=== PATIENT | male | born 1970 | race Caucasian/White ===

== ENCOUNTER 2016-11-29 15:49 | Inpatient (IN) | payer OTHER ==
[2016-11-29 17:17] VITALS: BMI 29.4
--- NOTE | 2016-11-29 19:04 | HP ---
[id number] 4d 4-Moderate,w/Arms Extend Anxiety: 4-Mod. Anxious/Guarded Agitation: 4-Moderately Restless Paroxysmal Sweats: 1-Minimal Palms Moist Orientation: 1-Uncertain about Date Tacttile Disturbances: 0-None Auditory Disturbances: 0-None Visual Disturbances: 0-None Headache: 0-None Present CIWA-Ar Total Score: 15 Admission ROS BHS - HPI Chief Complaint: withdrawal sx Allergies/Adverse Reactions: Allergies Allergy/AdvReac Type Severity Reaction Status Date / Time No Known Allergies Allergy Verified 11/29/16 17:53 History of Present Illness: 46 years old male with long history of alcohol cocaine marijuana nicotine dependence, - Ebola screening Have you traveled outside of the country in the last 21 days: No Have you had contact with anyone from an Ebola affected area: No Have you been sick,other than usual withdrawal symptoms: No Do you have a fever: No - Review of Systems Constitutional: Chills, Changes in sleep, Weight Stable EENT: reports: No Symptoms Reported Respiratory: reports: No Symptoms reported Cardiac: reports: No Symptoms Reported GI: reports: Diarrhea, Nausea, Poor Fluid Intake, Vomiting, Abdominal cramping : reports: No Symptoms Reported Musculoskeletal: reports: No Symptoms Reported Integumentary: reports: No Symptoms Reported Neuro: reports: Tremors Endocrine: reports: No Symptoms Reported Hematology: reports: No Symptoms Reported Psychiatric: reports: Judgement Intact, Anxious, Depressed Other Systems: Reviewed and Negative Patient History - Patient Medical History Hx Anemia: No Hx Asthma: No Hx Chronic Obstructive Pulmonary Disease (COPD): No Hx Cancer: No Hx Cardiac Disorders: No Hx Congestive Heart Failure: No Hx Hypertension: Yes Hx Hypercholesterolemia: Yes Hx Pacemaker: No HX Cerebrovascular Accident: No Hx Seizures: No Hx Dementia: No Hx Diabetes: Yes Hx Gastrointestinal Disorders: No Hx Liver Disease: No Hx Genitourinary Disorders: No Hx Sexually Transmitted Disorders: No Hx Renal Disease (ESRD): No Hx Thyroid Disease: No Hx Human Immunodeficiency Virus (HIV): No Hx Hepatitis C: No Hx Depression: No Hx Suicide Attempt: No (2016 thoughts) Hx Bipolar Disorder: Yes Hx Schizophrenia: No - Patient Surgical History Past Surgical History: No Hx Neurologic Surgery: No Hx Cataract Extraction: No Hx Cardiac Surgery: No Hx Lung Surgery: No Hx Breast Surgery: No Hx Breast Biopsy: No Hx Abdominal Surgery: Yes (umbilical 2003) Hx Appendectomy: No Hx Cholecystectomy: No Hx Genitourinary Surgery: No Hx Orthopedic Surgery: No Other Surgical History: 2000 devi spetal Anesthesia Reaction: No - PPD History Previous Implant?: Yes Documented Results: Positive w/o proof Implanted On Prior R Admission?: No PPD to be Administered?: No - Smoking Cessation Smoking history: Current every day smoker Have you smoked in the past 12 months: Yes Aproximately how many cigarettes per day: 20 Cigars Per Day: 0 Hx Chewing Tobacco Use: No Initiated information on smoking cessation: Yes 'Breaking Loose' booklet given: 11/29/16 - Substance & Tx. History Hx Alcohol Use: Yes Hx Substance Use: Yes Substance Use Type: Alcohol, Cocaine, Marijuana, Opiates Hx Substance Use Treatment: Yes - Substances Abused Alcohol Route: Oral Frequency: Daily Amount used: LIQUOR- 2 PINTS, BEER- 2 SIX PACKS Age of first use: 15 Date of Last Use: 11/29/16 Marijuana/Hashish Route: Smoking Frequency: Daily Amount used: $20 Age of first use: 15 Date of Last Use: 11/29/16 Cocaine Route: Inhalation Frequency: Daily Amount used: 2 BAGS Age of first use: 15 Date of Last Use: 11/26/16 Family Disease History - Family Disease History Family Disease History: Diabetes: Father, Heart Disease: Mother Admission Physical Exam S - Vital Signs Vital Signs: Vital Signs - 24 hr 11/29/16 17:15 Temperature 99.1 F Pulse Rate 104 H Respiratory 20 Rate Blood Pressure 135/72 - Physical General Appearance: Yes: Nourished, Appropriately Dressed, Mild Distress, Tremorous, Irritable, Sweating, Anxious HEENTM: Yes: Hearing grossly Normal, Normal ENT Inspection, Normocephalic, Normal Voice Respiratory: Yes: Chest Non-Tender, No Respiratory Distress, No Accessory Muscle Use, Wheezing, Expiration Neck: Yes: Supple, Trachea in good position Breast: Yes: Breasts Symetrical Cardiology: Yes: Regular Rhythm, S1, S2, Tachycardia Abdominal: Yes: Non Tender, Soft Genitourinary: Yes: Within Normal Limits Back: Yes: Normal Inspection Musculoskeletal: Yes: full range of Motion, Gait Steady Extremities: Yes: Normal Inspection, Normal Range of Motion, Non-Tender, Tremors Neurological: Yes: Alert, Motor Strength 5/5, Normal Response, Depressed Affect Integumentary: Yes: Warm Lymphatic: Yes: Within Normal Limits - Diagnostic (1) Alcohol dependence with uncomplicated withdrawal Current Visit: Yes Status: Acute (2) Methadone maintenance therapy patient Current Visit: Yes Status: Chronic Comment: 60 mg verification pending (3) Cocaine dependence, uncomplicated Current Visit: Yes Status: Chronic (4) Cannabis dependence, uncomplicated Current Visit: Yes Status: Chronic (5) Diabetes mellitus, type II, insulin dependent Current Visit: Yes Status: Chronic (6) Hypercholesteremia Current Visit: Yes Status: Chronic (7) Nicotine dependence Current Visit: Yes Status: Acute Qualifiers: Nicotine product type: cigarettes Substance use status: in withdrawal Qualified Code(s): F17.213 - Nicotine dependence, cigarettes, with withdrawal (8) Neuropathy Current Visit: Yes Status: Chronic (9) Bipolar II disorder Current Visit: Yes Status: Suspected (10) Positive PPD, treated Current Visit: Yes Status: Resolved Cleared for Admission [facility] - Detox or Rehab [facility] Level of Care: Medically Managed Detox Regimen/Protocol: Librium S Breath Alcohol Content Breath Alcohol Content: 0 Urine Drug Screen - Results Drug Screen Negative: No Urine Drug Screen Results: THC-Marijuana, LALIT-Cocaine, OPI-Opiates, PCP- Phencyclidine, BAR-Barbiturates, MTD-Methadone
[2016-11-29] MEDS ORDERED: MAGNESIUM HYDROX 2400MG/30ML ORAL SUSPENSION 30 ML CUP PO PRN (19:11)
[2016-11-29] MEDS ORDERED: guaiFENesin/D-METHORPHAN HB 10 ML UNIT-DOSE CUPS PO PRN (19:11)
[2016-11-29] MEDS ORDERED: diphenhydrAMINE HCL 50 MG CAPSULE PO PRN (19:11)
[2016-11-29] MEDS ORDERED: ACETAMINOPHEN 325 MG TABLET (FP) PO PRN (19:11)
[2016-11-29] MEDS ORDERED: LOPERAMIDE HCL 2 MG CAPSULE PO PRN (19:11)
[2016-11-29] MEDS ORDERED: chlordiazePOXIDE HCL 25 MG CAPSULE PO PRN (19:11)
[2016-11-29] MEDS ORDERED: MAGNESIUM CITRATE 300 ML BOTTLE PO PRN (19:11)
[2016-11-29] MEDS ORDERED: MENTHOL/PHENOL 1 EACH UD MM PRN (19:11)
[2016-11-29] MEDS ORDERED: MAG HYDROX/AL HYDROX/SIMETH 30 ML UNIT-DOSE CUP PO PRN (19:11)
[2016-11-29] MEDS ORDERED: NICOTINE POLACRILEX 4 MG GUM BC PRN (19:11)
[2016-11-29] MEDS ORDERED: IBUPROFEN 400 MG TABLET (FP) PO PRN (19:11)
[2016-11-29] MEDS ORDERED: chlordiazePOXIDE HCL 25 MG CAPSULE PO ONE (19:11)
[2016-11-29] MEDS ORDERED: P-EPHED 60MG/TRIPROLIDI 2.5MG TABLET PO PRN (19:11)
[2016-11-29] MEDS ORDERED: chlordiazePOXIDE HCL 25 MG CAPSULE ONE (21:22)
[2016-11-29] MEDS: GABAPENTIN 300 MG CAPSULE (FP) PO SCH (22:13)
[2016-11-29] MEDS: ATORVASTATIN CA 40 MG TABLET (FP) PO SCH (22:13)
[2016-11-29] MEDS: CYCLOBENZAPRINE HCL 10 MG TABLET (FP) PO PRN (22:13)
[2016-11-29] MEDS: chlordiazePOXIDE HCL 25 MG CAPSULE PO SCH (22:13)
[2016-11-29] MEDS: THIAMINE HCL 100 MG TABLET (FP) PO SCH (22:13)
[2016-11-29] MEDS: INSULIN DETEMIR 100 UNITS/ML MDV SQ SCH (22:15)
[2016-11-29 23:37] LABS: URINE APPEARANCE CLOUDY; URINE BILIRUBIN NEGATIVE (NEGATIVE); URINE COLOR YELLOW; URINE GLUCOSE (UA) 3+ (NEGATIVE); URINE KETONE TRACE (NEGATIVE); URINE NITRITE POSITIVE (NEGATIVE); URINE PROTEIN NEGATIVE (NEGATIVE); URINE UROBILINOGEN NEGATIVE E.U./dl (0.2-1.0)
[2016-11-29 23:38] LABS: URINE BLOOD 2+ (NEGATIVE); URINE LEUK ESTERASE 3+ (NEGATIVE)
[2016-11-29 23:41] LABS: CALCIUM OXALATE CRYSTALS FEW /hpf (NONE SEEN); URINE HYALINE CAST 2 /lpf; URINE MUCUS RARE; URINE RBC 34 /hpf (0-3); URINE WBC 434 /hpf (3-5)
[2016-11-30] MEDS: GABAPENTIN 300 MG CAPSULE (FP) PO SCH ×3 (05:34→22:07)
[2016-11-30] MEDS: CYCLOBENZAPRINE HCL 10 MG TABLET (FP) PO PRN ×2 (05:34→14:37)
[2016-11-30] MEDS: chlordiazePOXIDE HCL 25 MG CAPSULE PO SCH ×4 (05:34→22:07)
[2016-11-30] MEDS: PRENATAL VITAMINS W/ FOLIC ACID TABLET (FP) PO SCH (10:12)
[2016-11-30] MEDS: ASPIRIN 81 MG CHEWABLE TABLETS PO SCH (10:12)
[2016-11-30] MEDS: NICOTINE 21 MG/24 HOURS TOPICAL PATCH TD SCH (10:13)
[2016-11-30] MEDS: PIOGLITAZONE HCL 30 MG TABLET (FP) PO SCH (10:24)
[2016-11-30] MEDS ORDERED: METHADONE HCL 10 MG TABLET (FOR DETOX USE ONLY) PO ONE ×2 (10:25→23:00)
[2016-11-30 10:40] LABS: ALBUMIN 3.5 g/dl (3.4-5.0); ANION GAP 5 (8-16); CALCIUM 8.7 mg/dL (8.5-10.1); CO2 35 mmol/L (21-32); GLUCOSE,RANDOM 171 mg/dL (74-106); SGOT/AST 17 U/L (15-37); SGPT/ALT 27 U/L (12-78)
[2016-11-30 10:43] LABS: ALK PHOS 58 U/L (45-117); BILIRUBIN,TOTAL 0.6 mg/dL (0.2-1.0); COCKROFT - GAULT 139.16; CREATININE 0.8 mg/dL (0.7-1.3); TOT PROT 6.7 g/dl (6.4-8.2)
[2016-11-30 10:52] LABS: MCH 28.1 pg (25.7-33.7); MEAN CELL VOLUME 85.1 fl (80-96); MEAN PLT VOLUME 8.8 fl (7.5-11.1); PLATELET COUNT 177 K/MM3 (134-434); RDW 14.2 % (11.9-15.9); WHITE BLOOD COUNT 5.6 K/mm3 (4.0-10.0)
--- NOTE | 2016-11-30 11:13 | CONSULT ---
[facility] Psychiatric Consult - Data Date of interview: 11/30/16 Admission source: [facility] Identifying data: First admission to [facility] for this 46 y/o male seeking detox treatment for opioid,xanax,alcohol,cocaine and marijuana dependence.Patient is single,without children,homeless,unemployed and not supported on any form of income. Substance Abuse History: - Smoking Cessation. Smoking history: Current every day smoker. Have you smoked in the past 12 months: Yes. Aproximately how many cigarettes per day: 20. Cigars Per Day: 0. Hx Chewing Tobacco Use: No. Initiated information on smoking cessation: Yes. 'Breaking Loose' booklet given : 11/29/16. - Substance & Tx. History. Hx Alcohol Use: Yes. Hx Substance Use : Yes. Substance Use Type: Alcohol, Cocaine, Marijuana, Opiates. Hx Substance Use Treatment: Yes. - Substances Abused. Alcohol. Route: Oral. Frequency : Daily. Amount used: LIQUOR- 2 PINTS, BEER- 2 SIX PACKS. Age of first use: 15. Date of Last Use: 11/29/16. Marijuana/Hashish. Route: Smoking. Frequency: Daily. Amount used: $20. Age of first use: 15. Date of Last Use: 11/29/16. Cocaine. Route: Inhalation. Frequency: Daily. Amount used: 2 BAGS. Age of first use: 15. Date of Last Use: 11/26/16. Confirmed by patient. Medical History: Hypertension,diabetes mellitus and past history of umbilical herniorraphy. Psychiatric History: Patient is a hostile and guarded historian.Mr Oneill offers no information about his longitudinal history.He only mentions the diagnosis of bipolar disorder and current medications : depakote 1500 mg/day + seroquel 300 mg/hs + risperdal 1 mg/hs + trazodone 150 mg/hs.Confirmed by review of pharmacy claims of 11/04/16 @ [facility] # [id number] Dung Tello.Patient denies history of suicide attempts. Physical/Sexual Abuse/Trauma History: Not discused in this interview. Additional Comment: Urine Drug Screen Results: THC-Marijuana, LALIT-Cocaine, OPI- Opiates, PCP-Phencyclidine, BAR-Barbiturates, MTD-Methadone.Noted. Mental Status Exam - Mental Status Exam Alert and Oriented to: Time, Place, Person Cognitive Function: Grossly Intact Patient Appearance: Unkempt, Disheveled Mood: Hostile, Withdrawn, Irritable Affect: Mood Congruent Patient Behavior: Fatigued, Guarded Speech Pattern: Clear Voice Loudness: Normal Thought Process: Goal Oriented Thought Disorder: Not Present Hallucinations: Denies Suicidal Ideation: Denies Homicidal Ideation: Denies Insight/Judgement: Poor Sleep: Poorly, Difficulty falling asleep Appetite: Good Muscle strength/Tone: Normal Gait/Station: Normal Psychiatric Findings - Problem List ([place] 1, 2,3) (1) Alcohol dependence with uncomplicated withdrawal Current Visit: Yes Status: Acute (2) Cannabis dependence, uncomplicated Current Visit: Yes Status: Acute (3) Cocaine dependence, uncomplicated Current Visit: Yes Status: Acute (4) Opioid dependence on agonist therapy Current Visit: Yes Status: Acute (5) Nicotine dependence Current Visit: Yes Status: Acute Qualifiers: Nicotine product type: cigarettes Substance use status: in withdrawal Qualified Code(s): F17.213 - Nicotine dependence, cigarettes, with withdrawal (6) PCP (phencyclidine) abuse Current Visit: Yes Status: Acute (7) Substance induced mood disorder Current Visit: Yes Status: Acute (8) Bipolar disorder Current Visit: Yes Status: Acute Comment: Self-report. (9) Diabetes mellitus, type II, insulin dependent Current Visit: Yes Status: Chronic (10) Hypercholesteremia Current Visit: Yes Status: Chronic (11) Neuropathy Current Visit: Yes Status: Chronic (12) Positive PPD, treated Current Visit: Yes Status: Resolved - Initial Treatment Plan Initial Treatment Plan: Psychoeducation.Detoxification.Medications,as per patient's request : depakote 500 mg po bid + seroquel 200 mg po hs (reduced) + trazodone 100 mg po hs (reduced).Side effects/benefits discussed with the patient.Made aware of risk of oversedation/falls,metabolic syndrome,abnormal involuntary movements (seroquel),liver dysfunction,blood dyscrasias,weight gain, alopecia (depakote),priapism (trazodone).Advised to stop trazodone/seek immediate medical attention if occurrence of painful/prolonged erection.Patient is in agreement with this careplan.Will follow valproic acid level.Labs were reviewed..Observation.No scripts needed at discharge (refills still available, according to patient).
--- NOTE | 2016-11-30 11:51 | PN ---
S CIWA - CIWA Score Nausea/Vomitin-No Nausea/No Vomiting Muscle Tremors: 4-Moderate,w/Arms Extend Anxiety: 4-Mod. Anxious/Guarded Agitation: 4-Moderately Restless Paroxysmal Sweats: 1-Minimal Palms Moist Orientation: 0-Oriented Tacttile Disturbances: 3-Moderate Itch/Numb/Burn Auditory Disturbances: 0-None Visual Disturbances: 0-None Headache: 0-None Present CIWA-Ar Total Score: 16 BHS COWS - Scale Resting Pulse: 1= [place] 81-100 Sweatin= Chills/Flushing Restless Observation: 3= Extraneous Movement Pupil Size: 2= Moderately Dilated Bone or Joint Aches: 4=Acute Joint/Muscle Pain Runny Nose/ Eye Tearin= Nasal Congestion GI Upset > 30mins: 1= Stomach Cramp Tremor Observation of Outstretched Hands: 2= Slight Tremor Visible Yawning Observation: 1= 1-2x During Session Anxiety or Irritability: 2=Irritable/Anxious Goose Flesh Skin: 0=Smooth Skin COWS Score: 18 BHS Progress Note (SOAP) Subjective: ANXIETY,IRRITABILITY,AGITATIONS,ARGUMENTATIVE, PT CLAIMS HE IS ON AN MMTP IN [place]. A CALL TO THAT NUMBER INDICATED THAT THIS PATIENT IS NOT ACTIVELY IN THAT CLINIC CONFIRMED BY THE NURSING PERSONAL JHONATHAN. PT ALSO STATES HE HAS NOT BEEN IN AN[place] SINCE 2-3 WEEKS AGO BUT HAS BEEN USING HEROIN ON THE STREETS AND SCREAMING "I NEED METHADONE". SECURITY WAS CALLED TO THE FLOOR FOR [facility] FROM PT AND WAS SPOKEN TO AND TEAMED. TOXICOLOGY IS POSITIVE FOR OPIATE. PT WILL BE PUT ON METHADONE DETOX PROTOCOL WELL CONTINUE WITH LIBRIUM DIRECTED EARLIER. PT HAS BEEN EXPLAINED THE DETOX PROTOCOL AND NEED FOR COMPLIANCE. PT IS IN AGREEMENT AND APPEARS CALM AFTER EXPLAINING TO PT. Objective: 11/30/16 11:51 Vital Signs Temperature 95.6 F L 11/30/16 10:15 Pulse Rate 99 H 11/30/16 10:15 Respiratory Rate 20 11/30/16 10:15 Blood Pressure 118/78 11/30/16 10:15 O2 Sat by Pulse Oximetry (%) Laboratory Last Values WBC 5.6 K/mm3 (4.0-10.0) 11/30/16 07:00 RBC 4.76 M/mm3 (4.00-5.60) 11/30/16 07:00 Hgb 13.4 GM/dL (11.7-16.9) 11/30/16 07:00 Hct 40.6 % (35.4-49) 11/30/16 07:00 MCV 85.1 fl (80-96) 11/30/16 07:00 MCHC 33.0 g/dl (32.0-35.9) 11/30/16 07:00 RDW 14.2 % (11.9-15.9) 11/30/16 07:00 Plt Count 177 K/MM3 (134-434) 11/30/16 07:00 MPV 8.8 fl (7.5-11.1) 11/30/16 07:00 Sodium 139 mmol/L (136-145) 11/30/16 07:00 Potassium 4.3 mmol/L (3.5-5.1) 11/30/16 07:00 Chloride 99 mmol/L (98-107) 11/30/16 07:00 Carbon Dioxide 35 mmol/L (21-32) H 11/30/16 07:00 Anion Gap 5 (8-16) L 11/30/16 07:00 BUN 14 mg/dL (7-18) 11/30/16 07:00 Creatinine 0.8 mg/dL (0.7-1.3) 11/30/16 07:00 Creat Clearance w eGFR > 60 (>60) 11/30/16 07:00 POC Glucometer 219 UNITS (()) 11/30/16 05:32 Random Glucose 171 mg/dL (74-106) H 11/30/16 07:00 Calcium 8.7 mg/dL (8.5-10.1) 11/30/16 07:00 Total Bilirubin 0.6 mg/dL (0.2-1.0) 11/30/16 07:00 AST 17 U/L (15-37) 11/30/16 07:00 ALT 27 U/L (12-78) 11/30/16 07:00 Alkaline Phosphatase 58 U/L (45-117) 11/30/16 07:00 Total Protein 6.7 g/dl (6.4-8.2) 11/30/16 07:00 Albumin 3.5 g/dl (3.4-5.0) 11/30/16 07:00 Urine Color Yellow 11/29/16 22:03 Urine Appearance Cloudy 11/29/16 22:03 Urine pH 6.0 (5.0-8.0) 11/29/16 22:03 Ur Specific [place] 1.023 (1.001-1.035) 11/29/16 22:03 Urine Protein Negative (NEGATIVE) 11/29/16 22:03 Urine Glucose (UA) 3+ (NEGATIVE) H 11/29/16 22:03 Urine Ketones Trace (NEGATIVE) H 11/29/16 22:03 Urine Blood 2+ (NEGATIVE) H 11/29/16 22:03 Urine Nitrite Positive (NEGATIVE) 11/29/16 22:03 Urine Bilirubin Negative (NEGATIVE) 11/29/16 22:03 Urine Urobilinogen Negative E.U./dl (0.2-1.0) 11/29/16 22:03 Ur Leukocyte Esterase 3+ (NEGATIVE) H 11/29/16 22:03 Urine RBC 34 /hpf (0-3) 11/29/16 22:03 Urine WBC 434 /hpf (3-5) 11/29/16 22:03 Ur Epithelial Cells Rare /hpf (FEW) 11/29/16 22:03 Calcium Oxalate Crystal Few /hpf (NONE SEEN) 11/29/16 22:03 Hyaline Casts 2 /lpf 11/29/16 22:03 Urine Mucus Rare 11/29/16 22:03 LAB/UA NOTED Assessment: 11/30/16 11:52 WITHDRAWAL SX R/O UTI Plan: CONTINUE DETOX DETOX METHADONE PROTOCOL ADDED AND STARTED
--- NOTE | 2016-11-30 13:11 | EKG ---
Test Reason : Blood Pressure : / mmHG Vent. Rate : 095 BPM Atrial Rate : 095 BPM P-R Int : 128 ms QRS Dur : 082 ms QT Int : 344 ms P-R-T Axes : 065 056 035 degrees QTc Int : 432 ms NORMAL SINUS RHYTHM NORMAL ECG NO PREVIOUS ECGS AVAILABLE Confirmed by MICHELA ARRIAGA, ROSALBA ([id number]) on 11/30/2016 1:11:15 PM Referred By: Confirmed By:ROSALBA ABERNATHY MD
[2016-11-30] MEDS: metFORMIN HCL 500 MG TABLET (FP) PO SCH ×2 (14:31→17:07)
[2016-11-30] MEDS ORDERED: QUEtiapine FUMARATE 200 MG TABLET PO SCH (22:00)
[2016-11-30] MEDS: ATORVASTATIN CA 40 MG TABLET (FP) PO SCH (22:07)
[2016-11-30] MEDS: traZODone HCL 100 MG TABLET (FP) PO SCH (22:07)
[2016-11-30] MEDS: DIVALPROEX SODIUM 500 MG TABLET E.C. PO SCH (22:07)
[2016-11-30] MEDS: INSULIN DETEMIR 100 UNITS/ML MDV SQ SCH (22:09)
[2016-11-30] MEDS: THIAMINE HCL 100 MG TABLET (FP) PO SCH (22:14)
[2016-11-30 23:13] LABS: URINE APPEARANCE CLEAR; URINE BILIRUBIN NEGATIVE (NEGATIVE); URINE BLOOD NEGATIVE (NEGATIVE); URINE COLOR STRAW; URINE GLUCOSE (UA) 3+ (NEGATIVE); URINE KETONE NEGATIVE (NEGATIVE); URINE LEUK ESTERASE NEGATIVE (NEGATIVE); URINE NITRITE NEGATIVE (NEGATIVE); URINE PROTEIN NEGATIVE (NEGATIVE); URINE UROBILINOGEN NEGATIVE E.U./dl (0.2-1.0)
[2016-12-01] MEDS: GABAPENTIN 300 MG CAPSULE (FP) PO SCH ×3 (05:40→21:44)
[2016-12-01] MEDS: chlordiazePOXIDE HCL 25 MG CAPSULE PO SCH ×3 (05:40→17:03)
[2016-12-01] MEDS: PIOGLITAZONE HCL 30 MG TABLET (FP) PO SCH (07:31)
[2016-12-01] MEDS: metFORMIN HCL 500 MG TABLET (FP) PO SCH ×2 (07:31→17:03)
[2016-12-01] MEDS ORDERED: METHADONE HCL 10 MG TABLET (FOR DETOX USE ONLY) PO ONE (10:00)
--- NOTE | 2016-12-01 10:23 | PN ---
[facility] CIWA - CIWA Score Nausea/Vomitin-Mild Nausea/No Vomiting Muscle Tremors: 4-Moderate,w/Arms Extend Anxiety: 4-Mod. Anxious/Guarded Agitation: 3 Paroxysmal Sweats: 3 Orientation: 0-Oriented Tacttile Disturbances: 0-None Auditory Disturbances: 0-None Visual Disturbances: 0-None Headache: 0-None Present CIWA-Ar Total Score: 15 BHS COWS - Scale Resting Pulse: 1= [place] 81-100 Sweatin=Flushed/Facial Moisture Restless Observation: 1= Difficult to Sit Still Pupil Size: 0= Normal to Room Light Bone or Joint Aches: 1= Mild Discomfort Runny Nose/ Eye Tearin= Runny Nose/Eyes GI Upset > 30mins: 2= Nausea/Diarrhea Tremor Observation of Outstretched Hands: 2= Slight Tremor Visible Yawning Observation: 1= 1-2x During Session Anxiety or Irritability: 2=Irritable/Anxious Goose Flesh Skin: 0=Smooth Skin COWS Score: 14 S Progress Note (SOAP) Subjective: Anxiety,tremors,sweating,interrupted sleep,restless Objective: 12/01/16 10:22 Vital Signs 12/01/16 12/01/16 12/01/16 03:30 06:39 10:02 Temperature 97.3 F L 97.6 F Pulse Rate 90 91 H Respiratory 18 18 20 Rate Blood Pressure 106/62 124/76 Laboratory Tests 11/29/16 11/29/16 11/29/16 19:02 21:27 22:03 WBC RBC Hgb Hct MCV MCHC RDW Plt Count MPV Sodium Potassium Chloride Carbon Dioxide Anion Gap BUN Creatinine Creat Clearance w eGFR POC Glucometer 301 384 Random Glucose Calcium Total Bilirubin AST ALT Alkaline Phosphatase Total Protein Albumin Urine Color Yellow Urine Appearance Cloudy Urine pH 6.0 Ur Specific [place] 1.023 Urine Protein Negative Urine Glucose (UA) 3+ H Urine Ketones Trace H Urine Blood 2+ H Urine Nitrite Positive Urine Bilirubin Negative Urine Urobilinogen Negative Ur Leukocyte Esterase 3+ H Urine RBC 34 Urine WBC 434 Ur Epithelial Cells Rare Calcium Oxalate Crystal Few Hyaline Casts 2 Urine Mucus Rare Valproic Acid RPR Titer 11/30/16 11/30/16 11/30/16 05:32 07:00 07:00 WBC 5.6 RBC 4.76 Hgb 13.4 Hct 40.6 MCV 85.1 MCHC 33.0 RDW 14.2 Plt Count 177 MPV 8.8 Sodium 139 Potassium 4.3 Chloride 99 Carbon Dioxide 35 H Anion Gap 5 L BUN 14 Creatinine 0.8 Creat Clearance w eGFR > 60 POC Glucometer 219 Random Glucose 171 H Calcium 8.7 Total Bilirubin 0.6 AST 17 ALT 27 Alkaline Phosphatase 58 Total Protein 6.7 Albumin 3.5 Urine Color Urine Appearance Urine pH Ur Specific [place] Urine Protein Urine Glucose (UA) Urine Ketones Urine Blood Urine Nitrite Urine Bilirubin Urine Urobilinogen Ur Leukocyte Esterase Urine RBC Urine WBC Ur Epithelial Cells Calcium Oxalate Crystal Hyaline Casts Urine Mucus Valproic Acid RPR Titer 11/30/16 11/30/16 11/30/16 07:00 07:00 09:17 WBC RBC Hgb Hct MCV MCHC RDW Plt Count MPV Sodium Potassium Chloride Carbon Dioxide Anion Gap BUN Creatinine Creat Clearance w eGFR POC Glucometer Random Glucose Calcium Total Bilirubin AST ALT Alkaline Phosphatase Total Protein Albumin Urine Color Straw Urine Appearance Clear Urine pH 6.0 Ur Specific [place] 1.016 Urine Protein Negative Urine Glucose (UA) 3+ H Urine Ketones Negative Urine Blood Negative Urine Nitrite Negative Urine Bilirubin Negative Urine Urobilinogen Negative Ur Leukocyte Esterase Negative Urine RBC Urine WBC Ur Epithelial Cells Calcium Oxalate Crystal Hyaline Casts Urine Mucus Valproic Acid 9.908 L RPR Titer Nonreactive 11/30/16 20:59 WBC RBC Hgb Hct MCV MCHC RDW Plt Count MPV Sodium Potassium Chloride Carbon Dioxide Anion Gap BUN Creatinine Creat Clearance w eGFR POC Glucometer 377 Random Glucose Calcium Total Bilirubin AST ALT Alkaline Phosphatase Total Protein Albumin Urine Color Urine Appearance Urine pH Ur Specific [place] Urine Protein Urine Glucose (UA) Urine Ketones Urine Blood Urine Nitrite Urine Bilirubin Urine Urobilinogen Ur Leukocyte Esterase Urine RBC Urine WBC Ur Epithelial Cells Calcium Oxalate Crystal Hyaline Casts Urine Mucus Valproic Acid RPR Titer labs noted Assessment: 12/01/16 10:22 Withdrawal sx. Plan: Continue detox
[2016-12-01] MEDS: DIVALPROEX SODIUM 500 MG TABLET E.C. PO SCH ×2 (10:31→21:44)
[2016-12-01] MEDS: ASPIRIN 81 MG CHEWABLE TABLETS PO SCH (10:31)
[2016-12-01] MEDS: NICOTINE 21 MG/24 HOURS TOPICAL PATCH TD SCH (10:32)
[2016-12-01] MEDS: PRENATAL VITAMINS W/ FOLIC ACID TABLET (FP) PO SCH (10:32)
[2016-12-01] MEDS ORDERED: INSULIN (NOVOLOG) ASPART 100 UNITS/ML 10ML VIAL ONE (21:35)
[2016-12-01] MEDS: THIAMINE HCL 100 MG TABLET (FP) PO SCH (21:43)
[2016-12-01] MEDS: ATORVASTATIN CA 40 MG TABLET (FP) PO SCH (21:44)
[2016-12-01] MEDS: traZODone HCL 100 MG TABLET (FP) PO SCH (21:44)
[2016-12-01] MEDS: INSULIN DETEMIR 100 UNITS/ML MDV SQ SCH (21:44)
[2016-12-01] MEDS: QUEtiapine FUMARATE 300 MG TABLET PO SCH (21:44)
[2016-12-01] MEDS: INSULIN SLIDING SCALE (NOVOLOG) 1 VIAL SQ SCH (21:46)
[2016-12-01] MEDS: chlordiazePOXIDE 5 MG CAPSULE PO SCH (22:02)
[2016-12-02] MEDS: GABAPENTIN 300 MG CAPSULE (FP) PO SCH ×3 (05:59→22:20)
[2016-12-02] MEDS: chlordiazePOXIDE 5 MG CAPSULE PO SCH ×3 (06:28→17:09)
[2016-12-02] MEDS ORDERED: INSULIN (NOVOLOG) ASPART 100 UNITS/ML 10ML VIAL ONE ×4 (06:37→22:22)
[2016-12-02] MEDS: metFORMIN HCL 500 MG TABLET (FP) PO SCH ×2 (06:48→17:09)
[2016-12-02] MEDS: PIOGLITAZONE HCL 30 MG TABLET (FP) PO SCH (06:48)
[2016-12-02] MEDS: INSULIN SLIDING SCALE (NOVOLOG) 1 VIAL SQ SCH ×4 (06:49→22:23)
[2016-12-02] MEDS ORDERED: METHADONE HCL 5 MG TABLET (FOR DETOX USE ONLY) PO ONE (10:00)
[2016-12-02] MEDS: PRENATAL VITAMINS W/ FOLIC ACID TABLET (FP) PO SCH (10:18)
[2016-12-02] MEDS: ASPIRIN 81 MG CHEWABLE TABLETS PO SCH (10:18)
[2016-12-02] MEDS: DIVALPROEX SODIUM 500 MG TABLET E.C. PO SCH ×2 (10:18→22:20)
[2016-12-02] MEDS: NICOTINE 21 MG/24 HOURS TOPICAL PATCH TD SCH (10:19)
--- NOTE | 2016-12-02 10:54 | PN ---
BHS Progress Note (SOAP) Subjective: ANXIETY,IRRITABILITY,AGITATIONS,POOR IMPULSE CONTROL. PT HAS BEEN ENCOURAGED TO LET STAFF KNOW ABOUT WHAT BOTHERS HIM RATHER THAN THROWING FIT...OUTBURSTS. Objective: 12/02/16 10:54 Vital Signs Temperature 96.6 F L 12/02/16 09:59 Pulse Rate 102 H 12/02/16 09:59 Respiratory Rate 18 12/02/16 09:59 Blood Pressure 113/70 12/02/16 09:59 O2 Sat by Pulse Oximetry (%) Assessment: 12/02/16 10:55 WITHDRAWAL SX Plan: CONTINUE DETOX MONITOR PT'S CONCERNS.
[2016-12-02] MEDS: chlordiazePOXIDE HCL 10 MG CAPSULE PO SCH (22:20)
[2016-12-02] MEDS: CYCLOBENZAPRINE HCL 10 MG TABLET (FP) PO PRN (22:20)
[2016-12-02] MEDS: INSULIN DETEMIR 100 UNITS/ML MDV SQ SCH (22:20)
[2016-12-02] MEDS: ATORVASTATIN CA 40 MG TABLET (FP) PO SCH (22:20)
[2016-12-02] MEDS: THIAMINE HCL 100 MG TABLET (FP) PO SCH (22:20)
[2016-12-02] MEDS: traZODone HCL 100 MG TABLET (FP) PO SCH (22:20)
[2016-12-02] MEDS: QUEtiapine FUMARATE 300 MG TABLET PO SCH (23:41)
[2016-12-03] MEDS: GABAPENTIN 300 MG CAPSULE (FP) PO SCH ×3 (05:25→22:30)
[2016-12-03] MEDS: chlordiazePOXIDE HCL 10 MG CAPSULE PO SCH ×3 (05:25→17:41)
[2016-12-03] MEDS: INSULIN SLIDING SCALE (NOVOLOG) 1 VIAL SQ SCH ×4 (06:14→22:33)
[2016-12-03] MEDS: PIOGLITAZONE HCL 30 MG TABLET (FP) PO SCH (06:23)
[2016-12-03] MEDS: metFORMIN HCL 500 MG TABLET (FP) PO SCH ×2 (06:23→17:41)
[2016-12-03] MEDS ORDERED: INSULIN (NOVOLOG) ASPART 100 UNITS/ML 10ML VIAL ONE ×5 (06:28→21:29)
[2016-12-03] MEDS ORDERED: METHADONE HCL 5 MG TABLET (FOR DETOX USE ONLY) PO ONE (10:00)
[2016-12-03] MEDS: ASPIRIN 81 MG CHEWABLE TABLETS PO SCH (10:09)
[2016-12-03] MEDS: PRENATAL VITAMINS W/ FOLIC ACID TABLET (FP) PO SCH (10:09)
[2016-12-03] MEDS: DIVALPROEX SODIUM 500 MG TABLET E.C. PO SCH ×2 (10:09→22:30)
[2016-12-03] MEDS: NICOTINE 21 MG/24 HOURS TOPICAL PATCH TD SCH (10:09)
--- NOTE | 2016-12-03 13:14 | PN ---
BHS Progress Note (SOAP) Subjective: Anxiety, generalized aches Objective: 12/03/16 13:13 Vital Signs - 8 hr 12/03/16 12/03/16 06:46 10:17 Temperature 98 F 98.4 F Pulse Rate 84 72 Respiratory 16 18 Rate Blood Pressure 113/69 149/84 Laboratory Last Values WBC 5.6 K/mm3 (4.0-10.0) 11/30/16 07:00 RBC 4.76 M/mm3 (4.00-5.60) 11/30/16 07:00 Hgb 13.4 GM/dL (11.7-16.9) 11/30/16 07:00 Hct 40.6 % (35.4-49) 11/30/16 07:00 MCV 85.1 fl (80-96) 11/30/16 07:00 MCHC 33.0 g/dl (32.0-35.9) 11/30/16 07:00 RDW 14.2 % (11.9-15.9) 11/30/16 07:00 Plt Count 177 K/MM3 (134-434) 11/30/16 07:00 MPV 8.8 fl (7.5-11.1) 11/30/16 07:00 Sodium 139 mmol/L (136-145) 11/30/16 07:00 Potassium 4.3 mmol/L (3.5-5.1) 11/30/16 07:00 Chloride 99 mmol/L (98-107) 11/30/16 07:00 Carbon Dioxide 35 mmol/L (21-32) H 11/30/16 07:00 Anion Gap 5 (8-16) L 11/30/16 07:00 BUN 14 mg/dL (7-18) 11/30/16 07:00 Creatinine 0.8 mg/dL (0.7-1.3) 11/30/16 07:00 Creat Clearance w eGFR > 60 (>60) 11/30/16 07:00 POC Glucometer 277 UNITS (()) 12/03/16 11:34 Random Glucose 171 mg/dL (74-106) H 11/30/16 07:00 Calcium 8.7 mg/dL (8.5-10.1) 11/30/16 07:00 Total Bilirubin 0.6 mg/dL (0.2-1.0) 11/30/16 07:00 AST 17 U/L (15-37) 11/30/16 07:00 ALT 27 U/L (12-78) 11/30/16 07:00 Alkaline Phosphatase 58 U/L (45-117) 11/30/16 07:00 Ammonia 83.9 umol/L (11-32) H 12/02/16 07:00 Total Protein 6.7 g/dl (6.4-8.2) 11/30/16 07:00 Albumin 3.5 g/dl (3.4-5.0) 11/30/16 07:00 Urine Color Straw 11/30/16 09:17 Urine Appearance Clear 11/30/16 09:17 Urine pH 6.0 (5.0-8.0) 11/30/16 09:17 Ur Specific [place] 1.016 (1.001-1.035) 11/30/16 09:17 Urine Protein Negative (NEGATIVE) 11/30/16 09:17 Urine Glucose (UA) 3+ (NEGATIVE) H 11/30/16 09:17 Urine Ketones Negative (NEGATIVE) 11/30/16 09:17 Urine Blood Negative (NEGATIVE) 11/30/16 09:17 Urine Nitrite Negative (NEGATIVE) 11/30/16 09:17 Urine Bilirubin Negative (NEGATIVE) 11/30/16 09:17 Urine Urobilinogen Negative E.U./dl (0.2-1.0) 11/30/16 09:17 Ur Leukocyte Esterase Negative (NEGATIVE) 11/30/16 09:17 Urine RBC 34 /hpf (0-3) 11/29/16 22:03 Urine WBC 434 /hpf (3-5) 11/29/16 22:03 Ur Epithelial Cells Rare /hpf (FEW) 11/29/16 22:03 Calcium Oxalate Crystal Few /hpf (NONE SEEN) 11/29/16 22:03 Hyaline Casts 2 /lpf 11/29/16 22:03 Urine Mucus Rare 11/29/16 22:03 Valproic Acid 9.908 ug/ml (50-100) L 11/30/16 07:00 RPR Titer Nonreactive (NONREACTIVE) 11/30/16 07:00 labs noted Assessment: 12/03/16 13:14 withdrawal sx Plan: continue detox
[2016-12-03] MEDS: QUEtiapine FUMARATE 300 MG TABLET PO SCH (22:30)
[2016-12-03] MEDS: traZODone HCL 100 MG TABLET (FP) PO SCH (22:30)
[2016-12-03] MEDS: ATORVASTATIN CA 40 MG TABLET (FP) PO SCH (22:30)
[2016-12-03] MEDS: THIAMINE HCL 100 MG TABLET (FP) PO SCH (22:30)
[2016-12-03] MEDS: INSULIN DETEMIR 100 UNITS/ML MDV SQ SCH (22:33)
[2016-12-04] MEDS: metFORMIN HCL 500 MG TABLET (FP) PO SCH ×2 (06:36→17:25)
[2016-12-04] MEDS: PIOGLITAZONE HCL 30 MG TABLET (FP) PO SCH (06:36)
[2016-12-04] MEDS: GABAPENTIN 300 MG CAPSULE (FP) PO SCH ×2 (06:36→14:30)
[2016-12-04] MEDS: INSULIN SLIDING SCALE (NOVOLOG) 1 VIAL SQ SCH ×4 (06:41→21:15)
[2016-12-04] MEDS ORDERED: METHADONE HCL 10 MG TABLET (FOR DETOX USE ONLY) PO ONE (10:00)
[2016-12-04] MEDS: ASPIRIN 81 MG CHEWABLE TABLETS PO SCH (10:23)
[2016-12-04] MEDS: DIVALPROEX SODIUM 500 MG TABLET E.C. PO SCH (10:23)
[2016-12-04] MEDS: PRENATAL VITAMINS W/ FOLIC ACID TABLET (FP) PO SCH (10:23)
[2016-12-04] MEDS: NICOTINE 21 MG/24 HOURS TOPICAL PATCH TD SCH (10:23)
--- NOTE | 2016-12-04 15:52 | PN ---
[facility] Progress Note (SOAP) Subjective: Nausea, interrupted sleep, constipation (last bm 2 days ago very hard) Objective: 12/04/16 15:49 Last Vital Signs Temp Pulse Resp BP Pulse Ox 97.3 F L 95 H 18 115/78 12/04/16 13:30 12/04/16 13:30 12/04/16 13:30 12/04/16 13:30 Laboratory Tests 11/29/16 11/29/16 11/29/16 19:02 21:27 22:03 WBC RBC Hgb Hct MCV MCHC RDW Plt Count MPV Sodium Potassium Chloride Carbon Dioxide Anion Gap BUN Creatinine Creat Clearance w eGFR POC Glucometer 301 384 Random Glucose Calcium Total Bilirubin AST ALT Alkaline Phosphatase Ammonia Total Protein Albumin Urine Color Yellow Urine Appearance Cloudy Urine pH 6.0 Ur Specific [place] 1.023 Urine Protein Negative Urine Glucose (UA) 3+ H Urine Ketones Trace H Urine Blood 2+ H Urine Nitrite Positive Urine Bilirubin Negative Urine Urobilinogen Negative Ur Leukocyte Esterase 3+ H Urine RBC 34 Urine WBC 434 Ur Epithelial Cells Rare Calcium Oxalate Crystal Few Hyaline Casts 2 Urine Mucus Rare Valproic Acid RPR Titer 11/30/16 11/30/16 11/30/16 05:32 07:00 07:00 WBC 5.6 RBC 4.76 Hgb 13.4 Hct 40.6 MCV 85.1 MCHC 33.0 RDW 14.2 Plt Count 177 MPV 8.8 Sodium 139 Potassium 4.3 Chloride 99 Carbon Dioxide 35 H Anion Gap 5 L BUN 14 Creatinine 0.8 Creat Clearance w eGFR > 60 POC Glucometer 219 Random Glucose 171 H Calcium 8.7 Total Bilirubin 0.6 AST 17 ALT 27 Alkaline Phosphatase 58 Ammonia Total Protein 6.7 Albumin 3.5 Urine Color Urine Appearance Urine pH Ur Specific [place] Urine Protein Urine Glucose (UA) Urine Ketones Urine Blood Urine Nitrite Urine Bilirubin Urine Urobilinogen Ur Leukocyte Esterase Urine RBC Urine WBC Ur Epithelial Cells Calcium Oxalate Crystal Hyaline Casts Urine Mucus Valproic Acid RPR Titer 11/30/16 11/30/16 11/30/16 07:00 07:00 09:17 WBC RBC Hgb Hct MCV MCHC RDW Plt Count MPV Sodium Potassium Chloride Carbon Dioxide Anion Gap BUN Creatinine Creat Clearance w eGFR POC Glucometer Random Glucose Calcium Total Bilirubin AST ALT Alkaline Phosphatase Ammonia Total Protein Albumin Urine Color Straw Urine Appearance Clear Urine pH 6.0 Ur Specific [place] 1.016 Urine Protein Negative Urine Glucose (UA) 3+ H Urine Ketones Negative Urine Blood Negative Urine Nitrite Negative Urine Bilirubin Negative Urine Urobilinogen Negative Ur Leukocyte Esterase Negative Urine RBC Urine WBC Ur Epithelial Cells Calcium Oxalate Crystal Hyaline Casts Urine Mucus Valproic Acid 9.908 L RPR Titer Nonreactive 11/30/16 12/01/16 12/01/16 20:59 16:25 20:35 WBC RBC Hgb Hct MCV MCHC RDW Plt Count MPV Sodium Potassium Chloride Carbon Dioxide Anion Gap BUN Creatinine Creat Clearance w eGFR POC Glucometer 377 342 350 Random Glucose Calcium Total Bilirubin AST ALT Alkaline Phosphatase Ammonia Total Protein Albumin Urine Color Urine Appearance Urine pH Ur Specific [place] Urine Protein Urine Glucose (UA) Urine Ketones Urine Blood Urine Nitrite Urine Bilirubin Urine Urobilinogen Ur Leukocyte Esterase Urine RBC Urine WBC Ur Epithelial Cells Calcium Oxalate Crystal Hyaline Casts Urine Mucus Valproic Acid RPR Titer 12/02/16 12/02/16 12/02/16 05:59 07:00 11:40 WBC RBC Hgb Hct MCV MCHC RDW Plt Count MPV Sodium Potassium Chloride Carbon Dioxide Anion Gap BUN Creatinine Creat Clearance w eGFR POC Glucometer 280 261 Random Glucose Calcium Total Bilirubin AST ALT Alkaline Phosphatase Ammonia 83.9 H Total Protein Albumin Urine Color Urine Appearance Urine pH Ur Specific [place] Urine Protein Urine Glucose (UA) Urine Ketones Urine Blood Urine Nitrite Urine Bilirubin Urine Urobilinogen Ur Leukocyte Esterase Urine RBC Urine WBC Ur Epithelial Cells Calcium Oxalate Crystal Hyaline Casts Urine Mucus Valproic Acid RPR Titer 12/02/16 12/02/16 12/03/16 16:27 21:09 05:25 WBC RBC Hgb Hct MCV MCHC RDW Plt Count MPV Sodium Potassium Chloride Carbon Dioxide Anion Gap BUN Creatinine Creat Clearance w eGFR POC Glucometer 400 284 219 Random Glucose Calcium Total Bilirubin AST ALT Alkaline Phosphatase Ammonia Total Protein Albumin Urine Color Urine Appearance Urine pH Ur Specific [place] Urine Protein Urine Glucose (UA) Urine Ketones Urine Blood Urine Nitrite Urine Bilirubin Urine Urobilinogen Ur Leukocyte Esterase Urine RBC Urine WBC Ur Epithelial Cells Calcium Oxalate Crystal Hyaline Casts Urine Mucus Valproic Acid RPR Titer 12/03/16 12/03/16 12/03/16 11:34 17:40 22:29 WBC RBC Hgb Hct MCV MCHC RDW Plt Count MPV Sodium Potassium Chloride Carbon Dioxide Anion Gap BUN Creatinine Creat Clearance w eGFR POC Glucometer 277 334 273 Random Glucose Calcium Total Bilirubin AST ALT Alkaline Phosphatase Ammonia Total Protein Albumin Urine Color Urine Appearance Urine pH Ur Specific [place] Urine Protein Urine Glucose (UA) Urine Ketones Urine Blood Urine Nitrite Urine Bilirubin Urine Urobilinogen Ur Leukocyte Esterase Urine RBC Urine WBC Ur Epithelial Cells Calcium Oxalate Crystal Hyaline Casts Urine Mucus Valproic Acid RPR Titer 12/04/16 12/04/16 06:35 10:26 WBC RBC Hgb Hct MCV MCHC RDW Plt Count MPV Sodium Potassium Chloride Carbon Dioxide Anion Gap BUN Creatinine Creat Clearance w eGFR POC Glucometer 127 239 Random Glucose Calcium Total Bilirubin AST ALT Alkaline Phosphatase Ammonia Total Protein Albumin Urine Color Urine Appearance Urine pH Ur Specific [place] Urine Protein Urine Glucose (UA) Urine Ketones Urine Blood Urine Nitrite Urine Bilirubin Urine Urobilinogen Ur Leukocyte Esterase Urine RBC Urine WBC Ur Epithelial Cells Calcium Oxalate Crystal Hyaline Casts Urine Mucus Valproic Acid RPR Titer Labs noted Assessment: 12/04/16 15:51 Withdrawal symptoms Plan: Continue detox
[2016-12-04] MEDS ORDERED: BISACODYL 5 MG TABLET.DR (FP) PO ONE (16:08)
[2016-12-04] MEDS ORDERED: INSULIN (NOVOLOG) ASPART 100 UNITS/ML 10ML VIAL ONE ×2 (17:00→21:13)
[2016-12-04] MEDS: INSULIN DETEMIR 100 UNITS/ML MDV SQ SCH (21:16)
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
[2016-12-04 22:25] VITALS: BP 123/78; PULSE 99; TEMP 98
[2016-12-05] MEDS ORDERED: METHADONE HCL 5 MG TABLET (FOR DETOX USE ONLY) PO ONE (06:00)
== END 2016-12-04 23:13 | disposition home or self-care (01) | DRG 773 ==
LOC: YASAS 15:49 → Y3N 18:32
PROVIDERS: ADMIT Internal Medicine; ATTEND Internal Medicine
PROC: HZ2ZZZZ Detoxification Services for Substance Abuse Treatment (ICD-10-PCS; principal; 2016-11-29)
DX: F10.230 Alcohol dependence with withdrawal, uncomplicated (principal); F11.20 Opioid dependence, uncomplicated; F14.20 Cocaine dependence, uncomplicated; F12.20 Cannabis dependence, uncomplicated; F16.10 Hallucinogen abuse, uncomplicated; F17.213 Nicotine dependence, cigarettes, with withdrawal; F31.9 Bipolar disorder, unspecified; I10 Essential (primary) hypertension; E11.9 Type 2 diabetes mellitus without complications; Z79.4 Long term (current) use of insulin; E78.00 Pure hypercholesterolemia, unspecified; G62.9 Polyneuropathy, unspecified; R76.11 Nonspecific reaction to tuberculin skin test without active tuberculosis; R00.0 Tachycardia, unspecified
CPT/HCPCS: 36415; 71020-TC; 80053; 80164; 81003; 81015; 82140; 85027; 86593; 87086; 93005; 93010